=== PATIENT | male | born 1990 | race American Indian/Alaskan Native ===

== ENCOUNTER 2024-04-15 05:11 | Emergency (ER) | payer OTHER, SELFPAY ==
[2024-04-15 05:12] VITALS: BMI 45.4
[2024-04-15 05:42] VITALS: BP 145/89; PULSE 105; RESP 18; TEMP 37.5; O2SAT 96
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
[2024-04-15] MEDS: IBUPROFEN TAB 400 MG TABLET 800 MG PO (07:33)
[2024-04-15] MEDS: DIPHTH,PERTUSS(ACELL),TET VAC 0.5 ML SYR IMi (07:34)
--- NOTE | 2024-04-15 07:48 | PC.NURSE ---
CALLED [facility] AND I SPOKE TO DARBY WHO REPORTED THAT A REPORT ALREADY BEEN MADE
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
== END 2024-04-15 07:54 | disposition home or self-care (01) ==
PROVIDERS: Emergency Provider Emergency Medicine
DX: S09.90XA Unspecified injury of head, initial encounter (principal); S00.83XA Contusion of other part of head, initial encounter; S50.312A Abrasion of left elbow, initial encounter; M25.532 Pain in left wrist; Z23 Encounter for immunization; Y04.2XXA Assault by strike against or bumped into by another person, initial encounter; Y93.89 Activity, other specified; Y92.524 Gas station as the place of occurrence of the external cause; Y99.0 Civilian activity done for income or pay
CPT/HCPCS: 70450; 72125; 73080; 73110; 90471; 90715; 99284; A9270